=== PATIENT | male | born 2000 | race Caucasian/White ===

== ENCOUNTER 2020-08-31 21:50 | Emergency (ER) | payer BC ==
[2020-08-31] MEDS ORDERED: Proparacaine 0.5% Ophth Soln 15 ML Bottle EYELF ONE (22:14)
--- NOTE | 2020-08-31 22:35 | EDM.PDOC ---
ED HPI GENERAL MEDICAL PROBLEM - General Chief Complaint: Eye Problems Stated Complaint: SOMETHING IN LT EYE Time Seen by Provider: 08/31/20 22:10 Source of Information: Reports: Patient History Limitations: Reports: No Limitations - History of Present Illness INITIAL COMMENTS - FREE TEXT/NARRATIVE: 19-year-old male that got struck in the left eye by his 4-year-old nephew's fin gernail 4 hours ago. He has had intense pain in the left eye since the injury, photophobia, and for the last 2 hours cannot open his eye. No other injury, he does not wear contacts and has no vision problems. Onset: Sudden Duration: Hour(s): (4 hours ago) Location: Reports: Other (Left eye) Associated Symptoms: Reports: No Other Symptoms - Related Data Allergies Allergy/AdvReac Type Severity Reaction Status Date / Time No Known Allergies Allergy Verified 08/31/20 22:04 Home Meds: Home Meds NK [No Known Home Meds] 08/31/20 [History] Past Medical History - Past Health History Medical/Surgical History: Denies Medical/Surgical History Social & Family History - Tobacco Use Smoking Status *Q: Current Every Day Smoker Years of Tobacco use: 4 Packs/Tins Daily: 1 ED ROS GENERAL - Review of Systems Review Of Systems: See Below Constitutional: Denies: Fever, Chills HEENT: Reports: Eye Pain Respiratory: Denies: Shortness of Breath Cardiovascular: Denies: Chest Pain GI/Abdominal: Denies: Nausea, Vomiting Skin: Reports: No Symptoms Neurological: Denies: Headache ED EXAM GENERAL W FULL EYE - Physical Exam Exam: See Below Exam Limited By: No Limitations General Appearance: Alert, No Apparent Distress, Mild Distress (Appears very uncomfortable) Eyelids: Left: Normal Appearance Conjunctiva & Sclera: Left: Conjunctival Edema, Injected Cornea Exam: Left: Corneal Abrasion (Large corneal abrasion is present on the medial aspect of the left cornea) Extraocular Movements: Bilateral: Intact Respiratory/Chest: No Respiratory Distress Course - Vital Signs Last Recorded V/S: Last Vital Signs Temp 97.5 F 08/31/20 22:10 Pulse 107 H 08/31/20 22:10 Resp 14 08/31/20 22:10 BP 121/72 08/31/20 22:10 Pulse Ox 97 08/31/20 22:10 - Orders/Labs/Meds Meds: Medications Discontinued Medications Generic Name Dose Route Start Last Admin Trade Name Alexa PRN Reason Stop Dose Admin Proparacaine HCl 1 ml 08/31/20 22:14 08/31/20 22:42 Proparacaine 0.5% Ophth Soln EYELF 08/31/20 22:15 1 drop ONETIME ONE Administration - Re-Assessments/Exams Free Text/Narrative Re-Assessment/Exam: 08/31/20 22:40 Patient was placed on erythromycin ointment 3 times a day for the next 2 days, given 6 hydrocodone for extra pain control and should take an anti-inflammatory on a regular basis. Cool compresses to the eye may be helpful and he should be rechecked by optometry on Wednesday. Departure - Departure Time of Disposition: 22:42 Disposition: Home, Self-Care 01 Clinical Impression: Corneal abrasion, left Qualifiers: Encounter type: initial encounter Qualified Code(s): S05.02XA - Injury of conjunctiva and corneal abrasion without foreign body, left eye, initial encounter - Discharge Information Instructions: Corneal Abrasion Referrals: PCP,None [Primary Care Provider] - Forms: ED Department Discharge Care Plan Goals: Put ointment on your eyelid 3 times a day through the and recheck on Wednesday at optometry. Use ibuprofen or naproxen for pain and add stronger pain medication if needed especially if trying to sleep. Use numbing drops as sparingly as possible. Sepsis Event Note (ED) - Evaluation Sepsis Screening Result: No Definite Risk - Focused Exam Vital Signs: Vital Signs Temp Pulse Resp BP Pulse Ox 08/31/20 22:10 97.5 F 107 H 14 121/72 97
== END 2020-08-31 22:43 | disposition home or self-care (01) ==
LOC: JP.ED 21:50
DX: S05.02XA Injury of conjunctiva and corneal abrasion without foreign body, left eye, initial encounter (principal); F17.210 Nicotine dependence, cigarettes, uncomplicated; W22.8XXA Striking against or struck by other objects, initial encounter
CPT/HCPCS: 99283; A9270